=== PATIENT | male | born 1955 | race Caucasian/White ===

== ENCOUNTER → 2017-09-15 | Outpatient (CLI) | payer OTHER | END | disposition home or self-care (01) | LOC: LABPAT 13:07 | PROVIDERS: ATTEND Orthopaedic Surgery | DX: Z01.812 Encounter for preprocedural laboratory examination (principal) | CPT/HCPCS: 87070 ==

== ENCOUNTER 2017-09-29 13:50 | Inpatient (IN) | payer OTHER ==
[2017-09-23 11:28] VITALS: BMI 36.5
--- NOTE | 2017-09-28 08:57 | HP ---
HISTORY AND PHYSICAL CHIEF COMPLAINT: Right knee pain. HISTORY OF PRESENT ILLNESS: The patient is a 62-year-old retired male who presents with progressive right knee pain secondary to osteoarthrosis For the past several years. It has worsened recently. He has tried medications along with injections with only partial temporary relief. He notes posterior pain with driving. He is significantly limited. PAST MEDICAL HISTORY: Significant for reflux disease, hypercholesterolemia, hypertension, arthritis, and hypothyroidism. PAST SURGICAL HISTORY: Significant for left total knee arthroplasty along with carpal tunnel release. CURRENT MEDICATIONS: 1. Aspirin. 2. Nexium. 3. Synthroid. 4. Verapamil. 5. Zocor. 6. Ibuprofen. He has allergies to TESTOSTERONE INJECTIONS. FAMILY HISTORY: Significant for cancer and diabetes along with stroke. SOCIAL HISTORY: Negative for current tobacco or alcohol use. 16 POINT REVIEW OF SYSTEMS: Otherwise reviewed and is noncontributory. On examination, the patient is approximately 5 foot 8, 240 pounds of endomorphic habitus. HEENT exam is nonfocal. Neck is supple. He has painless passive motion of his right hip. Straight leg raise is negative. Active motion right knee -6 to 110 degrees of flexion. He is tender about the medial joint line. He has mild effusion. Collaterals stable, Linh is negative, Juan Jose's is equivocal. His distal neurovascular appears intact in the right lower extremity. He has genu varum alignment. Previous x-rays of the right knee obtained in the office show severe medial and patellofemoral compartment osteoarthrosis. IMPRESSION: 1. Right knee severe medial and patellofemoral compartment osteoarthrosis. 2. Increased body mass index. RECOMMENDATIONS: I talked to the patient at length regarding his treatment options. At this point, he is quite limited and painful because of osteoarthrosis despite conservative measures. After a thorough discussion, he opts to proceed with surgery. We will plan to proceed with right total knee arthroplasty. We will institute DVT prophylaxis postoperatively. The patient underwent preoperative medical evaluation by Dr. Solo Son. MMJUANL / MARKN: [id number] /
[~2017-09-29 13:50] MED LIST: ACETAMINOPHEN TAB 500 MG TAB PO ONE; HYDROmorphone 0.5 MG/0.5 ML SYRINGE IVP PRN; LIDOCAINE 1% 20 ML VIAL (10MG/ML) FOR IV START INTRADERMA PRN; MELOXICAM 7.5 MG TAB PO ONE; ONDANSETRON 4 MG/2 ML VIAL IVP ONE; TRANEXAMIC ACID 1,000 MG in SODIUM CHLORIDE 0.9% 100 ML IVPB ONE; ceFAZolin IN SWFI 2 GM/20 ML SYRINGE IVP ONE
[2017-09-29] MEDS ORDERED: ROPIVACAINE 246.25 MG, EPINEPHrine 0.5 MG, KETOROLAC 30 MG, cloNIDine HCL/PF 80 MCG, WA... MISCELLANE ONE ×5 (14:24)
[2017-09-29] MEDS: LACTATED RINGERS 1,000 ML IV SCH ×2 (14:47→23:01)
[2017-09-29] MEDS ORDERED: MIDAZOLAM 2 MG/2 ML VIAL IVP ONE (15:19)
[2017-09-29] MEDS ORDERED: ROPIVACAINE 1,100 MG, SODIUM CHLORIDE 0.9% 330 ML MISCELLANE PRN ×2 (15:36)
--- NOTE | 2017-09-29 15:37 | P.ONQ ---
Anesthesiology Proc Note - PNB - Peripheral Nerve Block Performed Right Adductor Canal Indication: Acute Post-Operative Pain, Requested by physician (Dr Son) Sedation Type: Sedate with meaningful contact maintained Preparation: Sterile Dressing Position: Supine Catheter: Indwelling Needle Types: Other (see comment) (B[place]gett) Needle Size: 100mm (4") Needle Gauge: 20 Technique: Ultrasound Injectate: 0.5% Ropivacaine (see comment for volume) (20cc) Blood Aspirated: No Pain Paresthesia on Injection Noted: No Resistance on Injection: Normal Events: Uneventful and Well Tolerated
[2017-09-29] MEDS ORDERED: fentaNYL (PF) 50 MCG/ML 2 ML AMP ONE (17:20)
[2017-09-29] MEDS ORDERED: MIDAZOLAM 2 MG/2 ML VIAL ONE (17:20)
[2017-09-29] MEDS ORDERED: KETAMINE 10 MG/ML 20 ML VIAL ONE (17:20)
[2017-09-29] MEDS ORDERED: SODIUM CHLORIDE 0.9% 50 ML with ceFAZolin 2,000 MG IV ONE ×2 (17:20)
[2017-09-29] MEDS ORDERED: TRANEXAMIC ACID 1,000 MG/10 ML VIAL ONE (17:20)
[2017-09-29] MEDS ORDERED: SODIUM CHLORIDE 0.9% 100 ML BAG ONE (17:20)
[2017-09-29] MEDS ORDERED: PROPOFOL 10 MG/ML 20 ML VIAL IV ONE (17:20)
[2017-09-29] MEDS ORDERED: LACTATED RINGERS 1,000 ML IV ONE (18:03)
[2017-09-29] MEDS ORDERED: HYDROcodone/APAP 7.5-325MG 1 EACH TAB PO PRN (19:15)
[2017-09-29] MEDS ORDERED: NALOXONE 0.4 MG/ML 1 ML VIAL IV PRN (19:15)
[2017-09-29] MEDS ORDERED: MAGNESIUM HYDROXIDE 2,400 MG/10 ML CUP PO PRN (19:15)
[2017-09-29] MEDS ORDERED: HYDROmorphone 1 MG/ML 1 ML SYRINGE IVP PRN ×2 (19:15)
[2017-09-29] MEDS ORDERED: traMADol 50 MG TAB PO PRN (19:15)
[2017-09-29] MEDS ORDERED: ONDANSETRON 4 MG/2 ML VIAL IVP PRN (19:15)
[2017-09-29] MEDS ORDERED: ACETAMINOPHEN TAB 325 MG TAB PO PRN ×2 (19:15→21:58)
--- NOTE | 2017-09-29 19:41 | P.OP ---
Date of Procedure: 09/29/17 Preoperative Diagnosis: Right knee severe tricompartmental osteoarthrosis-primary Postoperative Diagnosis: Same Procedure(s) Performed: Right total knee arthroplasty-cruciate retaining-cemented Implants: [employer] Oxin[employer] Legion size 6 cemented femoral component, size 5 cemented tibial component, 9 mm articular surface, 32 mm cemented patellar component. This was a cruciate retaining implant. Anesthesia: regional, local, spinal Surgeon: Mesfin Son Actuarial Internship #1: Mason Foote Estimated Blood Loss (ml): 50 Pathology: other (Bone fragments) Condition: stable Disposition: PACU Indications for Procedure: The patient's a 62-year-old male who presents with progressive right knee pain secondary to osteoarthrosis despite extensive conservative measures. A discussion of the risks and benefits of operative intervention versus continued conservative measures was made with patient. He opted to proceed with surgery. Operative risks to include infection, neurovascular injury, development of blood clots, possible component loosening, possible component failure need for subsequent procedures was discussed. Informed consent was obtained. Operative Findings: As below Description of Procedure: The patient was brought to the operating room, and after induction of spinal anesthesia the right lower extremity was prepped and draped in a normal fashion. The tourniquet was inflated to 270 mmHg. A longitudinal incision extending 3 finger breaths above the superior pole patella extending to the medial aspect of the tibial tubercle was then made. The skin and subcutaneous tissues were divided sharply. Electrocautery was used for hemostasis. A medial parapatellar arthrotomy was performed. The medial soft tissues to include the superficial and deep portions the medial collateral ligament as well as the medial hamstring tendons were elevated subperiosteally. The posterior medial capsule was elevated as well. I also removed the proximal medial tibial osteophytes. The patella was everted. A portion of the retropatellar fat pad was excised sharply. The knee was flexed. The anterior cruciate ligament was sacrificed. A starting hole was made in the distal femur 1 cm anterior to the posterior cruciate ligament origin. An intramedullary femoral guide was then gently inserted planning on 5 valgus distal cut with 9 mm distal resection. The cutting block was pinned in place. The distal cut was then made. The posterior referencing sizing guide was utilized. I felt size 6 was most appropriate. 3 of external rotation was built into the system and verified off the trans-epicondylar axis and the posterior condyles. The cutting block was pinned in place. The anterior, posterior, and chamfer cuts were then made. The bone fragments were then removed. The trial size 6 femoral component was placed and was fully seated. There is good anterior to posterior and medial to lateral fit. The distal peg holes were drilled. Attention was then paid towards preparing the proximal tibia. An extra medullary guide was utilized in line with the tibial shaft and second metatarsal distally. A 3 posterior slope cutting block was utilized. I planned on 2 mm resection from the medial compartment. The cutting block was pinned in place. The posterior cruciate ligament was protected with a retractor. The proximal tibial cut was made in the bone was removed in one fragment. The remnants of the medial and lateral menisci were excised at the capsular junction with electrocautery. The flexion and extension gaps were both tight therefore an additional 2 mm was resected. The proximal tibia utilized the cutting block. The tibia sized most appropriate size 5. The trial femoral and tibial components were placed along with a 9 mm articular surface. I was able to obtain full flexion and extension with good stability with varus and valgus stress. After several flexion and extension cycles, the tibial rotation was marked with electrocautery in line with the medial one third of the tibial tubercle. Attention was then paid towards preparing the patella. A patella reamer was utilized taking this down to 14 mm of bone stock. A good flush cut was made. The patella sized most appropriately 32 mm. The peg holes were drilled. The trial components placed. The knee was taken through range of motion. I had good patellofemoral tracking with no hands technique. The trial components were then removed. The posterior osteophytes off the distal femur were carefully removed with a curved osteotome. The tibia was prepared in the appropriate rotation with appropriate drill and keel punch. The flexion and extension gaps were checked and felt to be symmetric. The posterior soft tissues were injected with ropivacaine. The bony surfaces were prepared with pulsatile lavage and dried. Additional drill holes were made in the proximal medial tibia to facilitate cement interdigitation. The tibial component was then cemented in place and was fully seated. Excess cement was removed. The femoral component cemented in place and was fully seated. Excess cement was removed. The trial 9 mm articular surface was placed and the knee was put in full extension. The patella component cemented in placed and was fully seated. After the cement had sufficiently hardened, the knee was taken through range of motion and again felt to be stable in flexion and extension with varus and valgus stress. The trial articular surface was removed and the final 9 mm articular surface was fully seated. Care was taken to avoid any soft tissue interposition. Pulsatile lavage was then utilized. The medial parapatellar arthrotomy was closed with #2 Ethibond suture. A deep drain was placed exiting laterally. The tourniquet was deflated with the proximal a 70 minutes total tourniquet time. The subcu tissues were reapproximated with interrupted 2-0 Vicryl sutures. The skin was reapproximated with 3-0 subcuticular strata fix suture. Skin tape and adhesive was applied. A sterile dressing was applied. The patient was awoken from sedation and transferred to recovery room in good condition. Blood loss was estimated 50 mL. No complications were incurred. Sponge and needle counts were correct in the case.
--- NOTE | 2017-09-29 19:54 | XR ---
EXAMINATION TYPE: XR knee limited RT DATE OF EXAM: 09/29/2017 CLINICAL HISTORY: Postoperative evaluation Two views of the right knee are submitted. Identified are changes of total knee arthroplasty with femoral and tibial components appearing well seated. Postsurgical soft tissue changes are noted. Alignment is anatomic.
[2017-09-29] MEDS: HYDROcodone/APAP 7.5-325MG 1 EACH TAB PO PRN (22:56)
[2017-09-29] MEDS: SENNOSIDES-DOCUSATE SODIUM 1 EACH TAB PO SCH (23:00)
[2017-09-29] MEDS: ceFAZolin IN SWFI 2 GM/20 ML SYRINGE IVP SCH (23:16)
[2017-09-30] MEDS: HYDROcodone/APAP 7.5-325MG 1 EACH TAB PO PRN ×3 (06:16→18:36)
[2017-09-30] MEDS: LEVOTHYROXINE 88 MCG TAB PO SCH (06:17)
[2017-09-30 07:38] LABS: Basophils # (A) 0.1 k/uL (0-0.2); Basophils % (A) 1 %; CH 27.6; CHCM 31.6; Eosinophils # (A) 0.1 k/uL (0-0.7); Eosinophils % (A) 1 %; HCT 38.7 % (39.0-53.0); Luc # (Auto) 0.15; Luc % (Auto) 2; Lymphocytes # (A) 1.1 k/uL (1.0-4.8); Lymphocytes % (A) 11 %; MCH 27.2 pg (25.0-35.0); MCHC 30.9 g/dL (31.0-37.0); MCV 87.8 fL (80.0-100.0); Mean Platelet Volume 6.7; Monocytes # (A) 0.6 k/uL (0-1.0); Monocytes % (A) 6 %; Neutrophils # (A) 7.5 k/uL (1.3-7.7); Neutrophils % (A) 79 %; RDW 13.4 % (11.5-15.5); WBC 9.5 k/uL (3.8-10.6); WBC (Perox) 9.29
--- NOTE | 2017-09-30 07:53 | P.PN ---
Progress Note - Text The patient is status post right adductor canal catheter placement. The catheter was placed for postoperative pain control, status post total right arthroplasty. Ropivacaine 0.2% is infusing at 8 mLs per hour. The patient has no complaints of right lower extremity numbness or weakness. Patient's VAS score is 2-10. Assessment: Patient's adductor canal catheter is in place and working appropriately. Plan: continue infusion and adjust it as needed.
[2017-09-30] MEDS: VERAPAMIL SR 240 MG TABLET.ER PO SCH (09:13)
[2017-09-30] MEDS: PANTOPRAZOLE 40 MG TABLET PO SCH (09:13)
[2017-09-30] MEDS: RIVAROXABAN 10 MG TAB PO SCH (09:13)
[2017-09-30] MEDS: ATORVASTATIN 10 MG TAB PO SCH (09:13)
[2017-09-30] MEDS: TESTOSTERONE TOPICAL SCH (09:13)
[2017-09-30] MEDS: ceFAZolin IN SWFI 2 GM/20 ML SYRINGE IVP SCH (10:09)
--- NOTE | 2017-09-30 11:39 | P.PN ---
Subjective Progress Note Date: 09/30/17 Principal diagnosis: Status post right total knee arthroplasty Patient seen today resting in his hospital chair, he appears comfortable. He's been up ambulating with therapy, urinary catheters been discontinued. Pain is stated well-controlled. He denies any headaches, lightheadedness chest pain or shortness of breath. Objective - Vital Signs Vital signs: Vital Signs Temp 98.8 F 09/30/17 08:28 Pulse 82 09/30/17 08:28 Resp 16 09/30/17 02:00 BP 152/88 09/30/17 08:28 Pulse Ox 96 09/30/17 08:28 Intake & Output 09/29/17 09/30/17 09/30/17 18:59 06:59 18:59 Intake Total 1650 100 400 Output Total 250 1130 600 Balance 1400 -1030 -200 Intake: IV 1650 100 Oral 400 Output: Drainage 130 Right Knee 130 Urine 200 1000 600 Uretheral (Kevin) 600 Estimated Blood Loss 50 Other: Voiding Method Indwelling Catheter Indwelling Catheter - Exam Right lower extremity: Incision is clean, dry, and intact. The prineo tape is in good condition. There is minimal soft tissue swelling and ecchymosis surrounding the medial and lateral aspects of the incision. Calf is soft, no tenderness with palpation. Plantar flexion, dorsiflexion, EHL, FHL are intact. Sensory exam to light touch throughout the extremity is intact, dorsal pedis pulses 2+. - Labs CBC & Chem 7: 09/30/17 06:42 Labs: Abnormal Lab Results - Last 24 Hours (Table) 09/30/17 Range/Units 06:42 Hgb 12.0 L (13.0-17.5) gm/dL Hct 38.7 L (39.0-53.0) % MCHC 30.9 L (31.0-37.0) g/dL Assessment and Plan Plan: Assessment: 1. Postop day #1 status post right total knee arthroplasty Plan: 1. Pain control, continue use of oral medication 2. GI and DVT prophylaxis, continue Xarelto 10 mg 3. Continue with physical therapy and use of CPM 4. Daily dressing changes/ice and elevate 5. Encourage incentive spirometer 6. Patient likely be discharged home tomorrow Time with Patient: Less than 30
--- NOTE | 2017-09-30 15:38 | CONS ---
CONSULTATION DATE OF CONSULTATION: 09/30/17. REASON FOR CONSULTATION: Medical management requested by Dr. Son. CONSULTATION: This is a pleasant 62 year old patient who follows with Dr. Son. Chronic stable medical conditions include GERD, hypertension, hyperlipidemia, hypothyroid. Has obstructive sleep apnea, does not use CPAP machine. The patient did undergo right total knee arthroplasty. Some pain is present no nausea, vomiting. No chest pain or short of breath. REVIEW OF SYSTEMS: CONSTITUTIONAL: None. HEENT none. Respiratory none. Cardiovascular none. Gastrointestinal heartburn. Genitourinary none. Musculoskeletal: Aches and pains in joints. Dermatological and hematologic, lymphatic none psychiatry neurological none. PAST MEDICAL HISTORY: GERD, hypertension, hyperlipidemia, osteoarthritis, obstructive sleep apnea, hypothyroid. PAST SURGICAL HISTORY: Left total knee arthroplasty, carpal tunnel bilateral. SOCIAL HISTORY: . Does not smoke. Alcohol rarely. FAMILY HISTORY: Mother of a stroke. HOME MEDICATIONS: Verapamil ER 240 mg a day, Zocor 20 mg a day, Protonix 20 mg a day. Synthroid 88 mcg a day. Axiron 1 application topical daily. Tylenol 650 mg p.o. daily q.4h p.r.n. Xarelto 10 mg p.o. daily for surgery. ALLERGIES: CORTISONE, TESTOSTERONE, BLUE CHEESE. PHYSICAL EXAMINATION: On examination temperature 98.8, pulse 82, respirations 16, blood pressure 152/88, pulse ox 96% on room air. General appearance; well built, BMI 36.5. Sitting up comfortable. EYES: Pupils equal. Conjunctivae normal. HEENT: Oral cavity normal neck JVD not raised. Mass not palpable RESPIRATORY: Effort normal. Lungs are clear. CARDIOVASCULAR: First and second sounds, no edema. ABDOMEN: Liver, spleen not palpable. LYMPHATIC: No lymph nodes palpable in neck or axillae. PSYCHIATRY: Alert and oriented x3. Mood and affect normal. NEUROLOGICAL: pupils equal. Cranial nerves grossly intact. Power and sensation grossly intact. EXTREMITIES: Right knee in a dressing. INVESTIGATIONS: White count 9.5, hemoglobin 12, platelets 229. ASSESSMENT: 1. Right total knee arthroplasty. 2. Gastroesophageal reflux disease. 3. Essential hypertension. 4. Hyperlipidemia. 5. Primary osteoarthritis in other joints. 6. Hypothyroid. PLAN: Home medications are resumed. The patient's Xarelto for DVT prophylaxis. Care was discussed with the patient. Questions were answered. At patient should follow up with Dr. Son upon discharge Thank you Dr. Son. MMJUANL / MARKN: [id number] /
[2017-09-30] MEDS: LACTATED RINGERS 1,000 ML IV SCH (16:31)
[2017-09-30] MEDS: SENNOSIDES-DOCUSATE SODIUM 1 EACH TAB PO SCH (20:22)
[2017-10-01] MEDS: HYDROcodone/APAP 7.5-325MG 1 EACH TAB PO PRN ×2 (02:39→08:02)
[2017-10-01 03:23] VITALS: RESP 16
[2017-10-01] MEDS: LEVOTHYROXINE 88 MCG TAB PO SCH (05:54)
[2017-10-01] MEDS: ATORVASTATIN 10 MG TAB PO SCH (08:00)
[2017-10-01] MEDS: PANTOPRAZOLE 40 MG TABLET PO SCH (08:00)
[2017-10-01] MEDS: RIVAROXABAN 10 MG TAB PO SCH (08:01)
[2017-10-01] MEDS: VERAPAMIL SR 240 MG TABLET.ER PO SCH (08:01)
[2017-10-01 10:47] VITALS: BP 121/73; PULSE 87; TEMP 98.9
--- NOTE | 2017-10-01 10:55 | P.PN ---
Subjective Progress Note Date: 10/01/17 Principal diagnosis: Status post right total knee arthroplasty Patient seen today resting in his hospital chair, he appears comfortable. Pain is stated well-controlled. He denies any headaches, lightheadedness chest pain or shortness of breath. Objective - Vital Signs Vital signs: Vital Signs Temp 98.9 F 10/01/17 07:00 Pulse 87 10/01/17 07:00 Resp 16 10/01/17 00:08 BP 121/73 10/01/17 07:00 Pulse Ox 97 10/01/17 07:05 Intake & Output 09/30/17 10/01/17 10/01/17 18:59 06:59 18:59 Intake Total 400 Output Total 600 500 Balance -200 -500 Intake: Oral 400 Output: Urine 600 500 Uretheral (Kevin) 600 Other: Voiding Method Indwelling Catheter Indwelling Catheter # Voids 300 3 - Exam Right lower extremity: Incision is clean, dry, and intact. The prineo tape is in good condition. There is minimal soft tissue swelling and ecchymosis surrounding the medial and lateral aspects of the incision. Calf is soft, no tenderness with palpation. Plantar flexion, dorsiflexion, EHL, FHL are intact. Sensory exam to light touch throughout the extremity is intact, dorsal pedis pulses 2+. - Labs CBC & Chem 7: 09/30/17 06:42 Assessment and Plan Plan: Assessment: 1. Postop day #2 status post right total knee arthroplasty Plan: 1. Pain control, continue use of oral medication 2. GI and DVT prophylaxis, continue Xarelto 10 mg 3. Continue with physical therapy and use of CPM 4. Daily dressing changes/ice and elevate 5. Encourage incentive spirometer 6. Patient will be discharged home today Time with Patient: Less than 30
--- NOTE | 2017-10-01 10:58 | P.DS ---
Providers Date of admission: 09/29/17 14:20 Expected date of discharge: 10/01/17 Attending physician: Mesfin Son Consults: 09/29/17 19:15 Consult Physician Routine Consulting Provider: Nam Abrams Consult Reason/Comments: medical management Do you want consulting provider notified?: Yes Primary care physician: Solo Son [facility] Course: Date of admission: 09/29/2017 Date of discharge: 10/01/2017 Admission diagnosis: Status post right total knee arthroplasty Discharge diagnosis: Same Attending physician: Dr. Son Surgical procedures: Right total knee arthroplasty Brief history: Patient is a 62-year-old male with a history of with progressive primary right knee osteoarthritis. At this point patient has failed conservative treatment measures and has opted to proceed with a elective right total knee arthroplasty. Hospital course: Details of patient's surgery can be found in operative report. Patient tolerated the procedure well and was subsequently transported to orthopedic floor. Patient's orthopeidc and medical care was provided daily. Patient had daily laboratory tests performed for evaluation of overall blood counts. Patient had daily physical therapy to include strengthening range of motion as well as education with walker ambulation. Patient had daily CPM usage as part of their physical therapy program. Patient was treated with Xarelto for their postoperative DVT prophylaxis during their inpatient stay. Patient was noted to have a relatively uneventful postoperative course. Patient reported satisfactory pain control with oral pain medications by postoperative day 0. Patient showed satisfactory progress with physical therapy. Patient moved steadily through the program and had no difficulty meeting the goals by postoperative day 1. Given patient's otherwise satisfactory course and having met physical therapy goals, plan is to discharge patient home on postoperative day 1. Discharge condition/disposition: Patient will be discharged home in stable condition. Discharge medications: Instructions are given on resumption of patient's normal daily medications per primary care recommendation, in addition patient will be prescribed [place] 7.5 mg/325 mg, Colace 100 mg, Xarelto 10 mg. Discharge instructions: 1. Wound care and infection precautions, keep incision dry and covered while showering, no lotions, creams, moisturizers. No soaking, tubs, pools, hottubs. Do not scrub over the incision. 2. Weight-bear as tolerated with walker / cane until follow-up. 3. Ice and elevate when necessary. Do not exceed 20 minutes per hour with ice pack. 4. Utilize compression sleeve until seen at first follow up appointment. 5. Visiting nursing care. 6. Home physical therapy including home CPM. 7. Pain meds and anticoagulants per prescription. 8. Pain medication has potential to cause constipation. Increase oral fluid and fiber intake. Contact primary care provider if you have not had a bowel movement within 48 hours after discharge 9. No anti-inflammatory medication until discussed at first post operative visit, this including Motrin, Aleve, Mobic, Diclofenac. 10. Follow up in office at 2 weeks postop with Rivera Foote PA-C 11. Follow up with your primary care doctor 7-10 days after discharge. 12. Contact [facility] with any questions, . Procedures: Right total knee arthroplasty Patient Condition at Discharge: Good Plan - Discharge Summary Discharge Rx Participant: Yes New Discharge Prescriptions: New Rivaroxaban [Xarelto] 10 mg PO DAILY #12 tab Docusate [Colace] 100 mg PO DAILY #30 capsule HYDROcodone/APAP 7.5-325MG [[place] 7.5] 1 - 2 each PO Q6HR PRN #40 tab PRN Reason: Pain No Action Pantoprazole Sodium [Protonix] 20 mg PO DAILY Levothyroxine Sodium [Synthroid] 88 mcg PO DAILY Simvastatin [Zocor] 20 mg PO DAILY Verapamil HCl [Verapamil ER] 240 mg PO DAILY Axiron(Dose Unknown) 1 applicate TOPICAL DAILY Acetaminophen Tab [Tylenol Tab] 650 mg PO Q4H PRN PRN Reason: Pain Discharge Medication List Axiron(Dose Unknown) 1 applicate TOPICAL DAILY 12/29/14 [History] Levothyroxine Sodium [Synthroid] 88 mcg PO DAILY 12/29/14 [History] Pantoprazole Sodium [Protonix] 20 mg PO DAILY 12/29/14 [History] Simvastatin [Zocor] 20 mg PO DAILY 12/29/14 [History] Verapamil HCl [Verapamil ER] 240 mg PO DAILY 12/29/14 [History] Acetaminophen Tab [Tylenol Tab] 650 mg PO Q4H PRN 09/23/17 [History] Rivaroxaban [Xarelto] 10 mg PO DAILY #12 tab 09/29/17 [Rx] Docusate [Colace] 100 mg PO DAILY #30 capsule 10/01/17 [Rx] HYDROcodone/APAP 7.5-325MG [[place] 7.5] 1 - 2 each PO Q6HR PRN #40 tab 10/01/17 [ Rx] Follow up Appointment(s)/Referral(s): [facility], [NON-STAFF] - Mason Foote, DEMARCO [PHYSICIAN BLANKER OPERATOR] - 2 Weeks Activity/Diet/Wound Care/Special Instructions: Orthopedic Discharge Instructions: 1. Wound care and infection precautions, [keep incision dry and covered while showering], no lotions, creams, moisturizers. No soaking, pools, hot tubs. Do not scrub over incision. 2. Weight-bear [as tolerated] with walker / cane until follow-up. 3. Ice and elevate when necessary. Do not exceed 20 minutes per hour with ice pack. 4. Utilize compression sleeve until seen at first follow up appointment. 5. Visiting nursing care. 6. Home physical therapy [including home CPM]. 7. Pain meds and anticoagulants per prescription. 8. Pain medication has potential to cause constipation. Increase oral fluid and fiber intake. Contact primary care provider if you have not had a bowel movement within 48 hours after discharge. 9. No anti-inflammatory medication until discussed at first post operative visit, this including Motrin, Aleve, Mobic, Diclofenac. 10. Follow up in office at 2 weeks postop with Rivera Foote PA-C 11. Follow up with your primary care doctor 7-10 days after discharge. 12. Contact [facility] with any questions, . Discharge Disposition: HOME WITH HOME HEALTH SERVICES
--- NOTE | 2017-10-01 13:21 | P.PN ---
Progress Note - Text 0639 Anesthesia POD 3. Patient is status post right TKR under spinal anesthesia with a right adductor canal catheter placed for postoperative pain relief. With ropivacaine 0.2% running at 8 cc's per hour, the patient's VAS is (0, 3). Catheter site is clean dry and intact.
[2017-10-01] MEDS: LACTATED RINGERS 1,000 ML IV SCH (13:58)
[2017-10-01] MEDS: TESTOSTERONE TOPICAL SCH (13:58)
--- NOTE | 2017-10-01 18:24 | P.DS ---
Providers Date of admission: 09/29/17 14:20 Expected date of discharge: 10/01/17 Attending physician: Mesfin Son Consults: 09/29/17 19:15 Consult Physician Routine Consulting Provider: Nam Abrams Consult Reason/Comments: medical management Do you want consulting provider notified?: Yes Primary care physician: [facility] Course: DATE OF SERVICE: 10/01/2017 PRESENTING COMPLAINT: Right total knee arthroplasty HISTORY OF PRESENT ILLNESS: 62-year-old male who is status post right total knee arthroplasty. INTERVAL HISTORY: 10/01/2017: Patient seen in follow-up today, ambulating in the hurt[place] with physical therapy, tolerating his diet, pain is well-controlled agreeable to work with physical therapy, REVIEW OF SYSTEMS: Done for constitutional ,cardiovascular, GI, pulmonary with relevant findings as above. CURRENT MEDICATIONS Nixon, Lipitor, Synthroid 88 g by mouth daily, buccal magnesia, Zofran, Protonix 40 mg by mouth daily, Xarelto 10 mg by mouth daily, ropivacaine, Ultram , verapamil 240 mg by mouth daily, PHYSICAL EXAM VITAL SIGNS: Temperature any 8.9, pulse 87, blood pressure 121/73, respiratory rate 16, oxygen saturation 89% on room air. GENERAL APPEARANCE: Walking in the hurt[place] with physical therapy not in distress. EYES: Pupils equal. Conjunctiva normal. NECK: JVD not raised. Mass not palpable. RESPIRATORY: Respiratory effort normal. Lungs clear to auscultation. CARDIOVASCULAR: First and second sounds normal. No edema. ABDOMEN: Soft. Liver and spleen not palpable. No tenderness. No mass palpable. PSYCHIATRY: Alert and oriented x3. Mood and affect normal. INTEGUMENT: Right knee incision covered with a dry dressing, mild swelling and erythema noted. INVESTIGATIONS: None new ASSESSMENT: -Right total knee arthroplasty -Gastroesophageal reflux disease -Essential hypertension. -Hyperlipidemia. -Primary osteoporosis and other joints. -Hypothyroidism. PLAN: From medical standpoint patient stable for discharge. Plan to discharge home today, patient will continue to follow with physical therapy and orthopedic surgery outpatient. 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 Abrams Patient Condition at Discharge: Good Plan - Discharge Summary Discharge Rx Participant: Yes New Discharge Prescriptions: New Rivaroxaban [Xarelto] 10 mg PO DAILY #12 tab Docusate [Colace] 100 mg PO DAILY #30 capsule HYDROcodone/APAP 7.5-325MG [Nixon 7.5] 1 - 2 each PO Q6HR PRN #40 tab PRN Reason: Pain No Action Pantoprazole Sodium [Protonix] 20 mg PO DAILY Levothyroxine Sodium [Synthroid] 88 mcg PO DAILY Simvastatin [Zocor] 20 mg PO DAILY Verapamil HCl [Verapamil ER] 240 mg PO DAILY Axiron(Dose Unknown) 1 applicate TOPICAL DAILY Acetaminophen Tab [Tylenol Tab] 650 mg PO Q4H PRN PRN Reason: Pain Discharge Medication List Axiron(Dose Unknown) 1 applicate TOPICAL DAILY 12/29/14 [History] Levothyroxine Sodium [Synthroid] 88 mcg PO DAILY 12/29/14 [History] Pantoprazole Sodium [Protonix] 20 mg PO DAILY 12/29/14 [History] Simvastatin [Zocor] 20 mg PO DAILY 12/29/14 [History] Verapamil HCl [Verapamil ER] 240 mg PO DAILY 12/29/14 [History] Acetaminophen Tab [Tylenol Tab] 650 mg PO Q4H PRN 09/23/17 [History] Rivaroxaban [Xarelto] 10 mg PO DAILY #12 tab 09/29/17 [Rx] Docusate [Colace] 100 mg PO DAILY #30 capsule 10/01/17 [Rx] HYDROcodone/APAP 7.5-325MG [Nixon 7.5] 1 - 2 each PO Q6HR PRN #40 tab 10/01/17 [ Rx] Follow up Appointment(s)/Referral(s): Solo Son MD [Primary Care Provider] - 1 Week (Patient needs to make own appointment ) [facility], [NON-STAFF] - Mason Foote PAC [PHYSICIAN REGIONAL SALES COORDINATOR] - 10/16/17 1:50 pm Patient Instructions/Handouts: Knee Replacement (DC) Activity/Diet/Wound Care/Special Instructions: Orthopedic Discharge Instructions: 1. Wound care and infection precautions, [keep incision dry and covered while showering], no lotions, creams, moisturizers. No soaking, pools, hot tubs. Do not scrub over incision. 2. Weight-bear [as tolerated] with walker / cane until follow-up. 3. Ice and elevate when necessary. Do not exceed 20 minutes per hour with ice pack. 4. Utilize compression sleeve until seen at first follow up appointment. 5. Visiting nursing care. 6. Home physical therapy [including home CPM]. 7. Pain meds and anticoagulants per prescription. 8. Pain medication has potential to cause constipation. Increase oral fluid and fiber intake. Contact primary care provider if you have not had a bowel movement within 48 hours after discharge. 9. No anti-inflammatory medication until discussed at first post operative visit, this including Motrin, Aleve, Mobic, Diclofenac. 10. Follow up in office at 2 weeks postop with Rivera Foote PA-C 11. Follow up with your primary care doctor 7-10 days after discharge. 12. Contact [facility] with any questions, . Discharge Disposition: HOME WITH HOME HEALTH SERVICES
--- NOTE | 2017-10-01 21:36 | P.PN ---
Progress Note - Text Progress Note Date: 10/01/17 DATE OF SERVICE: 10/01/2017 PRESENTING COMPLAINT: Right total knee arthroplasty HISTORY OF PRESENT ILLNESS: 62-year-old male who is status post right total knee arthroplasty. INTERVAL HISTORY: 10/01/2017: Patient seen in follow-up today, ambulating in the [place] with physical therapy, tolerating his diet, pain is well-controlled agreeable to work with physical therapy, REVIEW OF SYSTEMS: Done for constitutional ,cardiovascular, GI, pulmonary with relevant findings as above. CURRENT MEDICATIONS [place], Lipitor, Synthroid 88 g by mouth daily, buccal magnesia, Zofran, Protonix 40 mg by mouth daily, Xarelto 10 mg by mouth daily, ropivacaine, Ultram , verapamil 240 mg by mouth daily, PHYSICAL EXAM VITAL SIGNS: Temperature any 8.9, pulse 87, blood pressure 121/73, respiratory rate 16, oxygen saturation 89% on room air. GENERAL APPEARANCE: Walking in the [place] with physical therapy not in distress. EYES: Pupils equal. Conjunctiva normal. NECK: JVD not raised. Mass not palpable. RESPIRATORY: Respiratory effort normal. Lungs clear to auscultation. CARDIOVASCULAR: First and second sounds normal. No edema. ABDOMEN: Soft. Liver and spleen not palpable. No tenderness. No mass palpable. PSYCHIATRY: Alert and oriented x3. Mood and affect normal. INTEGUMENT: Right knee incision covered with a dry dressing, mild swelling and erythema noted. INVESTIGATIONS: None new ASSESSMENT: -Right total knee arthroplasty -Gastroesophageal reflux disease -Essential hypertension. -Hyperlipidemia. -Primary osteoarthritis and other joints. -Hypothyroidism. PLAN: From medical standpoint patient stable for discharge. Plan to discharge home today, patient will continue to follow with physical therapy and orthopedic surgery outpatient. 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 Abrams
--- NOTE | 2017-10-02 08:40 | PN ---
PROGRESS NOTE DATE OF SERVICE: 10/01/17 PRESENTING COMPLAINT: Right knee surgery. INTERVAL HISTORY: The patient is status post right knee surgery, doing well. Pain is controlled. No nausea or vomiting. No chest pain. Did work with therapy. REVIEW OF SYMPTOMS: Done for constitutional, cardiovascular, gastrointestinal, pulmonary, musculoskeletal, relevant findings as above. MEDICATIONS: Current medications are reviewed. PHYSICAL EXAMINATION: On examination, temperature 98.9, pulse 87, respiratory rate 16. Blood pressure 121/73. Pulse ox 97% on room air. General appearance: Sitting up, comfortable. Eyes: Pupils equal, conjunctivae normal. Neck: JVD not raised. Mass not palpable. Respiratory effort: Lungs clear. Cardiovascular: First and second sounds normal. No edema. Abdomen soft, nontender. Liver and spleen not palpable. Psychiatric: Alert and oriented times three. Mood and affect normal. INVESTIGATIONS: White count 9.5. ASSESSMENT: 1. Right total knee arthroplasty. 2. Gastroesophageal reflux disease. 3. Essential hypertension. 4. Hyperlipidemia. 5. Primary osteoarthritis in the other joints. 6. Hypothyroidism. PLAN: Continue current medication and treatment plan. Thank you Dr. Son. MMJUANL / MARKN: [id number] /
== END 2017-10-01 14:00 | disposition home health service (06) | DRG 470 ==
LOC: 2ORMAIN 14:20 → 3SUR 19:39
PROVIDERS: ADMIT Orthopaedic Surgery; ATTEND Orthopaedic Surgery
PROC: 0SRC069 Replacement of Right Knee Joint with Oxidized Zirconium on Polyethylene Synthetic Substitute, Cemented, Open Approach (ICD-10-PCS; principal; 2017-09-29 16:40)
DX: M17.11 Unilateral primary osteoarthritis, right knee (principal); I10 Essential (primary) hypertension; M25.761 Osteophyte, right knee; K21.9 Gastro-esophageal reflux disease without esophagitis; E03.9 Hypothyroidism, unspecified; G47.33 Obstructive sleep apnea (adult) (pediatric); E78.00 Pure hypercholesterolemia, unspecified; M21.169 Varus deformity, not elsewhere classified, unspecified knee; Z96.652 Presence of left artificial knee joint; Z82.3 Family history of stroke; Z79.899 Other long term (current) drug therapy; Z79.01 Long term (current) use of anticoagulants; Z88.8 Allergy status to other drugs, medicaments and biological substances; Z91.018 Allergy to other foods; Z83.3 Family history of diabetes mellitus
CPT/HCPCS: 85025; 88300

== ENCOUNTER → 2022-01-31 | Outpatient (CLI) | payer MEDICARE ==
--- NOTE | 2022-01-31 12:25 | MR ---
EXAMINATION TYPE: MR shoulder LT wo con DATE OF EXAM: 01/31/2022 11:57 AM COMPARISON: NONE HISTORY: M25.512 Left shoulder pain TECHNIQUE: Multiplanar multispin echo imaging of the left shoulder was performed. FINDINGS: Rotator cuff : Complete full-thickness tear supraspinatus tendon. Marked thinning noted and heteroge neity. Partial tear extends into the infraspinatus tendon. Tendinosis of the supraspinatus tendon. Bursa: No bursal effusion or thickening is seen. Musculature: There is no muscular tear, contusion, or atrophy. Acromioclavicular joint : Severe AC joint arthropathy. Severe subacromial space narrowing. Osseous structures : Elevation humeral head relative to the central glenoid axis compatible with medical sales ying tear. Cystic degenerative change humeral head. Associated spur formation. Long biceps tendon : The biceps tendon is normally situated within the bicipital groove. No complete or partial biceps tendon tear is present. Glenohumeral Joint fluid : There is no glenohumeral joint effusion. Cartilage and Bone : No focal hyaline cartilage defects are noted. No Hill-Sachs, reverse Hill-Sachs, or bony Bankart lesions are seen. Labrum : There are no SLAP or soft tissue Bankart lesions. No paralabral cysts are seen. OTHER FINDINGS : none IMPRESSION: 1. Complete full-thickness tear supraspinatus tendon. Partial tear extends into the infraspinatus ten don. Tendinosis of the supraspinatus tendon.
== END | disposition home or self-care (01) ==
LOC: RADMRIMAIN 11:08
PROVIDERS: ATTEND Orthopaedic Surgery
DX: M75.122 Complete rotator cuff tear or rupture of left shoulder, not specified as traumatic (principal)

== ENCOUNTER → 2022-09-15 | Outpatient (CLI) | payer MEDICARE ==
--- NOTE | 2022-09-15 18:48 | CA ---
Transthoracic Echo Report Name: Barron Al Age: 67 Gender: M : 1955 Exam Date: 09/15/2022 14:56 Exam Location: [place] [facility] Ht (in): 68 Wt (lb): 250 Ordering Physician: Judy Rivers MD Attending/Referring Phys: Judy Rivers MD Collections Officer Hanh Lawrence RDCS Procedure CPT: Indications: G47.33 OBSTRUCTIVE SLEEP APNEA (ADULT) (PEDIATRIC) Cardiac Hx: Technical Quality: Fair Contrast 1: Total Dose (mL): Contrast 2: Total Dose (mL): MEASUREMENTS (Male / Female) Normal Values 2D ECHO LV Diastolic Diameter PLAX 4.0 cm 4.2 - 5.9 / 3.9 - 5.3 cm LV Systolic Diameter PLAX 2.9 cm IVS Diastolic Thickness 1.5 cm 0.6 - 1.0 / 0.6 - 0.9 cm LVPW Diastolic Thickness 1.1 cm 0.6 - 1.0 / 0.6 - 0.9 cm LV Relative Wall Thickness 0.7 RV Internal Dim ED PLAX 3.6 cm LA Volume 49.1 cm??? 18 - 58 / 22 - 52 cm??? M-MODE Aortic Root Diameter MM 4.0 cm LA Systolic Diameter MM 5.6 cm LA Ao Ratio MM 1.4 AV Cusp Separation MM 1.7 cm DOPPLER AV Peak Velocity 152.5 cm/s AV Peak Gradient 9.3 mmHg LVOT Peak Velocity 103.1 cm/s LVOT Peak Gradient 4.3 mmHg MV Area PHT 3.7 cm??? Mitral E Point Velocity 64.9 cm/s Mitral A Point Velocity 102.0 cm/s Mitral E to A Ratio 0.6 MV Deceleration Time 204.9 ms MV E' Velocity 5.0 cm/s Mitral E to MV E' Ratio 13.0 TR Peak Velocity 169.8 cm/s TR Peak Gradient 11.5 mmHg Right Ventricular Systolic Press 16.5 mmHg FINDINGS Left Ventricle Moderately increased septal wall thickness. Normal left ventricular systolic function with no obvious regional wall motion abnormalities. Left ventricular ejection fraction is estimated at 55- 60 %. Right Ventricle Mild right ventricular dilatation. Right ventricular systolic pressure within normal limits. Right Atrium Normal right atrial size. Left Atrium Normal left atrial size. Mitral Valve Structurally normal mitral valve. Mild mitral regurgitation. Aortic Valve No aortic valve stenosis or regurgitation. Tricuspid Valve Structurally normal tricuspid valve. Mild tricuspid regurgitation. Pulmonic Valve Structurally normal pulmonic valve. Pericardium No pericardial effusion. Aorta Normal size aortic root and proximal ascending aorta. CONCLUSIONS Moderate LVH, preserved systolic function Previewed by: Dr. Chepe Mcdowell MD (Electronically Signed) Final Date: 15 September 2022 18:46
== END | disposition home or self-care (01) ==
LOC: RADECHMAIN 14:49
PROVIDERS: ATTEND Internal Medicine Critical Care Medicine
DX: I51.7 Cardiomegaly (principal)
CPT/HCPCS: 93306

== ENCOUNTER 2023-07-31 05:44 | Day surgery (SDC) | payer MEDICARE ==
--- NOTE | 2023-07-30 08:25 | P.HPOR ---
History of Present Illness H&P Date: 07/30/23 Chief Complaint: Left shoulder pain The patient is a 68-year-old [id number] male who presents with persistent left shoulder pain after an injury in July 2021 after a fall. He's having pain with overhead use and at night. He tried medications in addition to home exercises without much relief. He has daily pain that limits him. Review of Systems As per HPI Past Medical History Past Medical History: GERD/Reflux, Hyperlipidemia, Hypertension, Sleep Apnea/CPAP/BIPAP, Thyroid Disorder Additional Past Medical History / Comment(s): 01/02/15 Pt admitted to floor s/p L total knee arthroplasty. Other HX: not currently using cpap, arthritis History of Any Multi-Drug Resistant Organisms: None Reported Past Surgical History: Joint Replacement Additional Past Surgical History / Comment(s): 01/02/15 Total L knee arthroplasty. colonoscopy, right total knee arthroplasty Past Anesthesia/Blood Transfusion Reactions: No Reported Reaction Additional Past Anesthesia/Blood Transfusion Reaction / Comment(s): Pt has never had a blood transfusion. Past Alcohol Use History: Occasional, Rare - Past Family History Father Family Medical History: Cancer Mother Family Medical History: CVA/TIA Additional Family Medical History / Comment(s): Mother at 79 yrs of CVA. Medications and Allergies Home Medications Medication Instructions Recorded Confirmed Type Axiron(Dose Unknown) 1 applicate TOPICAL DAILY 12/29/14 09/29/17 History Levothyroxine Sodium [Synthroid] 88 mcg PO DAILY 12/29/14 09/29/17 History Pantoprazole Sodium [Protonix] 20 mg PO DAILY 12/29/14 09/29/17 History Simvastatin [Zocor] 20 mg PO DAILY 12/29/14 09/29/17 History Verapamil HCl [Verapamil ER] 240 mg PO DAILY 12/29/14 09/29/17 History Acetaminophen Tab [Tylenol Tab] 650 mg PO Q4H PRN 09/23/17 09/29/17 History Rivaroxaban [Xarelto] 10 mg PO DAILY #12 tab 09/29/17 Rx Docusate [Colace] 100 mg PO DAILY #30 capsule 10/01/17 Rx HYDROcodone/APAP 7.5-325MG [[place] 1 - 2 each PO Q6HR PRN #40 tab 10/01/17 Rx 7.5] Allergies Allergy/AdvReac Type Severity Reaction Status Date / Time cortisone Allergy Itching Verified 09/29/17 19:36 testosterone AdvReac Rash/Hives Verified 09/29/17 19:36 blue cheese AdvReac Rash/Hives Uncoded 09/29/17 14:42 Physical Examination - Shoulder left Tenderness with palpation: anterior, bicipital groove Pain: with abduction, with forward flexion ROM: forward flexion: 120 degrees ROM: internal rotation: lower lumbar ROM: external rotation: 50 degrees Crepitus with motion: Yes Strength: abduction: 4/5 Strength: external rotation: 4/5 Tests: internal impingement tests: positive, external impingment tests: positive Results The patient is a well-developed well-nourished male approximately 5 foot 8, 240 pounds of endomorphic habitus. HEENT exam is nonfocal, neck is supple. He is tender both left shoulder anterior subacromial space. Bowser, Neer, and speed test are positive. His distal neurovascular exam otherwise appears intact in the left upper extremity. - Diagnostic results Shoulder MRI: image reviewed (MRI of the left shoulder shows evidence of a rotator cuff tear involving the supraspinatus and a portion of the infraspinatus.) Assessment and Plan Assessment: Left shoulder impingement with symptomatic rotator cuff tear Left proximal bicipital tendinosis Left acromioclavicular joint arthritis Plan: I talked to the patient with regarding his condition along with treatment options. At this point he's having persistent pain in weakness despite attempted conservative measures. After thorough discussion he opted to proceed with surgery. We'll plan to proceed with left shoulder arthroscopy with probable subacromial decompression, rotator cuff repair versus debridement, biceps tenotomy versus tenodesis, and possible distal clavicular resection. We will likely perform that as an outpatient procedure. Risks and benefits were discussed at length in layman's terms.
[2023-07-30 09:25] VITALS: BMI 38.0
[2023-07-31] MEDS ORDERED: LACTATED RINGERS 1,000 ML IV SCH (06:01)
[2023-07-31] MEDS ORDERED: ONDANSETRON 4 MG/2 ML VIAL IVP ONE (06:01)
[2023-07-31] MEDS ORDERED: DEXAMETHASONE SOD PHOSPHATE 4 MG/ML 1 ML VIAL IV ONE (06:01)
[2023-07-31 06:29] VITALS: TEMP 98
[2023-07-31] MEDS ORDERED: MIDAZOLAM 2 MG/2 ML VIAL IVP ONE (06:50)
[2023-07-31] MEDS ORDERED: fentaNYL (PF) 50 MCG/1 ML VIAL IVP ONE (06:50)
[2023-07-31] MEDS ORDERED: MIDAZOLAM 2 MG/2 ML VIAL IV PRN (07:00)
[2023-07-31] MEDS ORDERED: HYDROmorphone 0.5 MG/0.5 ML SYRINGE IVP PRN (07:00)
[2023-07-31] MEDS ORDERED: PROPOFOL 10 MG/ML 20 ML VIAL IV ONE (07:24)
[2023-07-31] MEDS ORDERED: ePHEDrine 50 MG/ML 1 ML VIAL ONE (07:24)
[2023-07-31] MEDS ORDERED: ROPIVACAINE 5 MG/ML 30 ML VIAL ONE (07:24)
[2023-07-31] MEDS ORDERED: LIDOCAINE 2% INJ 20 MG/ML (2 ML VIAL) ONE (07:24)
[2023-07-31] MEDS ORDERED: SUCCINYLCHOLINE CHLORIDE 200 MG/10 ML VIAL IV ONE (07:24)
[2023-07-31] MEDS ORDERED: WATER FOR INJECTION, STERILE 10 ML VIAL IV ONE (07:24)
--- NOTE | 2023-07-31 09:54 | P.OP ---
Date of Procedure: 07/31/23 Preoperative Diagnosis: Left shoulder impingement/symptomatic rotator cuff tear Postoperative Diagnosis: 5 cm rotator cuff tear, acromioclavicular joint arthritis Procedure(s) Performed: Left shoulder arthroscopic subacromial decompression/distal clavicular resection/rotator cuff repair Implants: Arthrex 4.75 mm swivel lock anchor 3, 5.5 mm swivel lock anchor 2 Anest[facility]: [facility] Surgeon: Mesfin Son Pathology: none sent Condition: stable Disposition: PACU Indications for Procedure: The patient's a 68-year-old male who presents with persistent left shoulder pain and weakness after a previous fall despite attempted conservative measures. A discussion of the risks and benefits of operative intervention versus continued conservative measures was made with the patient. He opted to proceed with surgery. Operative risks to include infection, neurovascular injury, development of blood clots, possible tendon rerupture, possible postoperative stiffness and possible need for subsequent procedures was discussed. Informed consent was obtained. Operative Findings: As below Description of Procedure: The patient was brought to the operating room, and after induction of general anesthesia was placed in a beachchair position. A preoperative interscalene block was placed for postoperative analgesia. I examined the left shoulder. There was no gross block to passive motion or gross glenohumeral instability. The left upper extremity was prepped and draped in normal fashion. The bony outlines the acromion, distal clavicle, and coracoid process were outlined with a skin marker. The glenohumeral joint was inflated with 50 mL of saline utilizing a spinal needle from posterior approach. A posterior portal was made through a 5 mm skin incision 1 cm medial and inferior to the posterior lateral border time. A blunt trocar was used to easily into the joint. Diagnostic arthroscopy was performed. An anterior portal was made just lateral to the coracoid process entering the joint above the subscapularis tendon. The subscapularis tendon appeared to be intact. Anterior labrum was intact. The inferior recess was inspected. The posterior labrum was intact. The biceps appeared to have been previously ruptured. On inspection the rotator cuff a large tear with some retraction was noted involving the supraspinatus and infraspinatus tendons. A lateral portal was made 2 centimeters inferior to the anterior lateral border of the acromion. The rotator cuff was then mobilized with a traction suture. This was then brought back to the greater tuberosity. The soft tissue on the undersurface of the acromion was debrided with a motorized shaver and electrocautery clearly defining the anterior medial and lateral borders as well as the distal clavicle. An anterior inferior acromioplasty was performed with a motorized fili starting anterolateral, then extending this posteriorly, then extending this medially. I converted to a flat acromion and this was verified in the posterior and lateral viewing portals. The distal clavicle appeared to impinge on the subacromial space therefore the distal 4 mm was resected with a motorized bur. The greater tuberosity was lightly decorticating with a shaver down to a bleeding bony surface. An accessory superior lateral portals made just off the lateral edge of the acromion for anchor placement. 3 anchors were then placed just off the articula r surface with the appropriate starting awl. 4.75 mm anchors preloaded with #2 fiber tape were placed. Good purchase was obtained. These fiber tapes were then passed the rotator cuff with a scorpion suture passer. A lateral row was created crisscrossing these tapes. 5.5 mm swivel lock anchors x2 were placed laterally. Good purchase was obtained. Final arthroscopic view showed adequate compression at the footprint. The arthroscope was then removed. The portals were closed with simple 3-0 nylon sutures. A sterile dressing was applied in addition to an abductor brace. The patient was then awoken from general anesthesia and transferred to recovery room in good condition. Blood loss was estimated at 10 mL. No complications were incurred. Sponge and needle counts were correct in the case. A nurse assisted and the major components of the case to include arm positioning, anchor placement, and rotator cuff repair.
--- NOTE | 2023-07-31 10:23 | P.ANPRN ---
Procedure Note - Anesthesia - Nerve Block Performed Left Interscalene Single Time Out Performed: Yes ([id number]) Date of Procedure: 07/31/23 Procedure Start Time: 06:52 Procedure Stop Time: 06:55 Location of Patient: PreOp Indication: Acute Post-Operative Pain, Requested by Surgeon Specifically requested for management of pain by : Mesfin Son Sedation Type: Sedate with meaningful contact maintained Preparation: Sterile Prep Position: Supine Catheter: None Needle Types: Pajunk Needle Gauge: 21 Ultrasound used to visualize needle placement: Yes Ultrasound used to observe medication spread: Yes Injectate: 0.5% Ropivacaine (see comment for volume) (30cc) Blood Aspirated: No Pain Paresthesia on Injection Noted: No Resistance on Injection: Normal Image Stored and Saved: Yes Events: Uneventful and Well Tolerated
[2023-07-31 10:46] VITALS: RESP 18
[2023-07-31 11:12] VITALS: PULSE 55
[2023-07-31 11:37] VITALS: BP 119/77
== END 2023-07-31 11:42 | disposition home or self-care (01) ==
LOC: OR 05:44
PROVIDERS: ATTEND Orthopaedic Surgery
DX: M75.122 Complete rotator cuff tear or rupture of left shoulder, not specified as traumatic (principal); M75.42 Impingement syndrome of left shoulder; M19.012 Primary osteoarthritis, left shoulder; G89.18 Other acute postprocedural pain; K21.9 Gastro-esophageal reflux disease without esophagitis; I10 Essential (primary) hypertension; E78.5 Hyperlipidemia, unspecified; G47.30 Sleep apnea, unspecified; E07.9 Disorder of thyroid, unspecified; Z96.652 Presence of left artificial knee joint; Z86.59 Personal history of other mental and behavioral disorders; Z82.3 Family history of stroke; Z79.890 Hormone replacement therapy; Z79.899 Other long term (current) drug therapy
CPT/HCPCS: 64415; 29826; 29827; C1713 ×3; C1894; J2250; J0330; J1100; J0690; J2405; J2795; J2704; J2001; J3010